=== PATIENT | female | born 1960 | race Caucasian/White ===

== ENCOUNTER 2024-04-21 13:49 | Outpatient (CLI) | payer OTHER | END 2024-04-21 13:50 | disposition home or self-care (01) | LOC: NM 13:49 | PROVIDERS: ATTEND Surgery | DX: R10.11 Right upper quadrant pain (principal); K83.8 Other specified diseases of biliary tract; R93.2 Abnormal findings on diagnostic imaging of liver and biliary tract | CPT/HCPCS: 78227; A9537 ==